=== PATIENT | female | born 1990 | race Caucasian/White ===

== ENCOUNTER 2021-10-03 12:15 | Day surgery (SDC) | payer OTHER ==
[2021-10-03 12:41] VITALS: BMI 26.7
[2021-10-03] MEDS ORDERED: hydrALAZINE 20 MG/ML VIAL SLOW IVP PRN (12:43)
== END 2021-10-03 18:10 | disposition home or self-care (01) ==
LOC: CSHLD/OP 12:15
PROVIDERS: ATTEND Student in an Organized Health Care Education/Training Program
DX: O99.613 Diseases of the digestive system complicating pregnancy, third trimester (principal); K62.89 Other specified diseases of anus and rectum; Z3A.37 37 weeks gestation of pregnancy; Z79.899 Other long term (current) drug therapy
CPT/HCPCS: 72195; 99282

== ENCOUNTER 2023-02-25 13:16 | Day surgery (SDC) | payer OTHER ==
[2023-02-25 13:59] VITALS: BMI 24.9
[2023-02-25] MEDS ORDERED: hydrALAZINE 20 MG/ML VIAL SLOW IVP PRN (14:28)
[2023-02-25] MEDS ORDERED: Lactated Ringer's 1,000 ML IV SCH (14:30)
[2023-02-25 15:57] LABS: Bilirubin Neg (Negative); Blood, Urine Negative (Negative); Clarity Clear (Clear); Glucose, Urine (Dipstick) Normal (Negative); Ketone, Urine Negative (Negative); Leukocyte Negative (Negative); Nitrite Negative (Negative); Protein, Urine (Dipstick) Negative (Neg-Trace); Urobilinogen Normal mg/dL (Less than 2)
[2023-02-25 16:15] LABS: CAUTI Indications for Culture Pregnancy; RBC/HPF None Seen HPF (0-3); Squamous Epithelial 0-3 HPF (0-3); WBC/HPF 0-3 HPF (0-3)
[2023-02-25 16:16] LABS: Bacteria/HPF 1+ HPF (None Seen); Urine Culture Reflex Yes Yes
[2023-02-25] MEDS ORDERED: Terbutaline Sulfate 1 MG/ML VIAL SC SCH (16:30)
[2023-02-25] MEDS ORDERED: Terbutaline Sulfate 1 MG/ML VIAL ONE (16:33)
[2023-02-25 16:48] LABS: Fetal Fibronectin Negative (Negative)
[2023-02-25 16:49] LABS: FFN Internal QC Analyzer PASS (PASS); FFN Internal QC Cassette PASS (PASS)
== END 2023-02-25 18:09 | disposition home or self-care (01) ==
LOC: CSHLD/OP 13:16
PROVIDERS: ATTEND Student in an Organized Health Care Education/Training Program
DX: O47.02 False labor before 37 completed weeks of gestation, second trimester (principal); O99.343 Other mental disorders complicating pregnancy, third trimester; F32.A Depression, unspecified; K63.2 Fistula of intestine; Z90.49 Acquired absence of other specified parts of digestive tract; Z90.89 Acquired absence of other organs; Z79.899 Other long term (current) drug therapy; Z3A.27 27 weeks gestation of pregnancy
CPT/HCPCS: 76819; 81001; 82731; 87086; J3105

== ENCOUNTER 2023-04-21 20:50 | Day surgery (SDC) | payer OTHER ==
[2023-04-22] MEDS ORDERED: Acetaminophen 500 MG TAB PO SCH (00:15)
== END 2023-04-22 00:30 | disposition home or self-care (01) ==
LOC: CSHLD/OP 20:50
PROVIDERS: ATTEND Student in an Organized Health Care Education/Training Program
DX: O36.8130 Decreased fetal movements, third trimester, not applicable or unspecified (principal); O26.853 Spotting complicating pregnancy, third trimester; O99.343 Other mental disorders complicating pregnancy, third trimester; F41.9 Anxiety disorder, unspecified; F32.A Depression, unspecified; Z90.89 Acquired absence of other organs; Z90.49 Acquired absence of other specified parts of digestive tract; Z98.890 Other specified postprocedural states; Z79.899 Other long term (current) drug therapy; Z3A.35 35 weeks gestation of pregnancy
CPT/HCPCS: 76815; 99282